=== PATIENT | female | born 1935 ===

== ENCOUNTER 2016-10-04 11:24 | Inpatient (IN) | payer MEDICAID, MEDICARE ==
[2016-10-04] MEDS ORDERED: Ondansetron INJ* 2 MG/ML VIAL IV ONE (17:17)
[2016-10-04] MEDS ORDERED: NS 0.9% 1000 ML* 1,000 ML IV ONE (17:17)
[2016-10-04] MEDS ORDERED: Pantoprazole IV* 40 MG IV ONE ×2 (17:17→21:45)
--- NOTE | 2016-10-04 17:55 | RAD ---
INDICATION: Shortness of breath. COMPARISON: There are no prior studies available for comparison. TECHNIQUE: Dual-energy PA and lateral views of the chest were obtained. FINDINGS: The heart is mildly enlarged. Mediastinal and hilar contours are otherwise unremarkable. The lungs are hyperinflated and clear. No pleural effusion is seen. IMPRESSION: FINDINGS SUGGESTIVE OF COPD, NO EVIDENCE FOR ACUTE FINDING.
[2016-10-04 18:38] LABS: Hematocrit 31 % (35-47); Hemoglobin 9.5 g/dl (12.0-16.0); Mean Corpuscular HGB Conc 31 g/dl (31-36); Mean Corpuscular Hemoglobin 24 pg (27-31); Mean Corpuscular Volume 78 fL (80-97); Mean Platelet Volume 8 um3 (7.4-10.4); Red Blood Count 3.95 10^6/ul (4.0-5.4); Red Cell Distribution Width 21 % (10.5-15); White Blood Count 7.6 10^3/ul (3.5-10.8)
[2016-10-04] MEDS ORDERED: Morphine INJ* 4 MG/ML 1 ML SYRINGE IV ONE (18:44)
[2016-10-04 18:47] LABS: Urine Bacteria 2+ (Absent); Urine Bilirubin Negative (Negative); Urine Glucose Negative (Negative); Urine Nitrite Positive (Negative)
[2016-10-04 18:53] LABS: Albumin 3.8 g/dL (3.2-5.2); BUN/Creatinine Ratio 27.1 (8-20); C Reactive Protein 4.13 mg/L (< 5.00); Calcium 9.1 mg/dL (8.6-10.3); EGFR Non-African American 80.1 (>60); Globulin 3.3 g/dL (2-4); Potassium 3.2 mmol/L (3.5-5.0); Total Bilirubin 0.4 mg/dL (0.2-1.0); Total Protein 7.1 g/dL (6.4-8.9)
[2016-10-04 18:55] LABS: Troponin I 0.01 ng/mL (<0.04)
[2016-10-04] MEDS ORDERED: Iohexol 300* (CONTRAST) 10 ML SDV IV ONE (19:10)
--- NOTE | 2016-10-04 20:11 | RAD ---
INDICATION: Abdominal pain. COMPARISON: There are no prior studies available for comparison. TECHNIQUE: A CT scan of the abdomen and pelvis was performed with intravenous and oral contrast following intravenous injection of 109 ml of Omnipaque 300 nonionic contrast. Contiguous axial sections were obtained from the lung bases through the symphysis pubis. Images were reconstructed in the coronal and sagittal planes. FINDINGS: The lung bases are clear. No pleural effusion is present. The liver and spleen are normal in size. There are several hypodense hepatic lesions. The largest is present in the left hepatic lobe measuring 2.1 x 1.6 cm in size most consistent with a cyst. Several of the lesions are too small to characterize by CT although likely represent cysts. In addition there is intra and extrahepatic ductal distention. The patient is status post cholecystectomy. No pancreatic ductal distention is seen. The adrenal glands appear to be within normal limits. The kidneys are normal in size. There is a hypodense lesion arising from the superior pole of the right kidney which measures greater than fluid density and measures 1.8 cm in size consistent with a complex cyst or solid mass. There are several small bilateral renal cysts. No hydronephrosis is seen. The aorta is normal in caliber with moderate to severe calcific plaque present. No significant enlarged retroperitoneal lymph nodes are seen. There is a large hiatal hernia containing the fundus and body of the stomach. The stomach, small and large bowel appear nondistended. The appendix is not visualized. There is moderate sigmoid diverticulosis. There is no evidence for diverticulitis or colitis. The uterus is retroverted and normal in size. No free intraperitoneal air or fluid is seen. No significant focal osseous abnormality is seen. IMPRESSION: 1. LARGE HIATAL HERNIA. 2. STATUS POST CHOLECYSTECTOMY. THERE IS BOTH INTRA AND EXTRA HEPATIC DUCTAL DISTENTION. RECOMMEND A FOLLOW-UP MRCP STUDY FOR FURTHER EVALUATION. 3. RIGHT RENAL NODULE CONSISTENT WITH EITHER A COMPLEX CYST OR MASS. RECOMMEND A FOLLOW-UP RENAL ULTRASOUND FOR FURTHER EVALUATION.
[2016-10-04] MEDS ORDERED: cefTRIAXone(*) 1 GM in NS 0.9% 50 ML* 50 ML IVPB ONE (21:28)
[2016-10-04] MEDS ORDERED: Morphine INJ* 2 MG/ML 1 ML SYRINGE ONE (23:55)
[2016-10-04] MEDS: Morphine INJ* 2 MG/ML 1 ML SYRINGE IV PRN (23:58)
[2016-10-05] MEDS: NS 0.9% 1000 ML* 1,000 ML IV SCH ×2 (00:25→23:25)
[2016-10-05] MEDS ORDERED: Pantoprazole IV* 40 MG IV ONE (02:00)
[2016-10-05 02:43] LABS: BUN/Creatinine Ratio 24.7 (8-20); Calcium 8.2 mg/dL (8.6-10.3); EGFR African American 98.2 (>60); EGFR Non-African American 76.3 (>60); Potassium 3.3 mmol/L (3.5-5.0)
[2016-10-05 02:50] LABS: Hematocrit 27 % (35-47); Hemoglobin 8.5 g/dl (12.0-16.0); Mean Corpuscular HGB Conc 32 g/dl (31-36); Mean Corpuscular Hemoglobin 25 pg (27-31); Mean Corpuscular Volume 78 fL (80-97); Mean Platelet Volume 8 um3 (7.4-10.4); Red Blood Count 3.43 10^6/ul (4.0-5.4); Red Cell Distribution Width 21 % (10.5-15); White Blood Count 6.1 10^3/ul (3.5-10.8)
[2016-10-05] MEDS: KCL 20 MEQ/100 ML IVPREMIX* 20 MEQ/100 ML BAG IV SCH ×3 (02:58→16:59)
[2016-10-05] MEDS: Pantoprazole IV* 80 MG in NS 0.9% 250 ML* 250 ML IVPB SCH ×2 (03:02→17:00)
--- NOTE | 2016-10-05 03:08 | HP ---
CC: Dr. Esparza * HISTORY AND PHYSICAL: DATE OF ADMISSION: 10/04/16 PRIMARY CARE PROVIDER: Dr. Arturo Esparza. ATTENDING PHYSICIAN: Dr. Enrike Harrell * (dictated by Brinda Drake NP) CHIEF COMPLAINT: Abdominal pain, melena, and shortness of breath. HISTORY OF PRESENT ILLNESS: Ms. 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 It is to note that the patient was hospitalized in April of this year, underwent an endoscopy showing a large hiatal hernia. She also has a history of Yevgeniy erosion, chronic anemia, and recurring black stool. It was suspected that the patient's NSAID use could be causing some of the ulcers possibly. The patient also reports that her stomach hurts when she is eating. She reports subjective fevers last evening. Denies any chills, chest pain. She also reports nausea and intermittent diarrhea and constipation with her IBS. She endorses dysuria and urgency. She is reporting belching. She also reports some dizziness occasionally when lying down. Due to the patient's symptoms, she called her primary care provider, who recommended she present to the emergency room for evaluation of her symptoms. While in the emergency room, the patient had labs that were significant for hypokalemia with potassium of 3.2, her hemoglobin is 9.5, and her hematocrit was 31. There are no previous hemoglobins and hematocrits in the computer for comparison. The patient had urinalysis positive for nitrites, 2+ leukocyte esterase, wbc's 3+, rbc's 2+, squamous epithelial cells present, and bacteria 2+ . The patient had an EKG showing sinus rhythm. She had a chest x-ray showing findings suggestive of COPD and no acute findings. She had an abdomen and pelvis CT showing a large hiatal hernia, status post cholecystectomy with intra - and extra- hepatic ductal distention. It was recommended that the patient have a followup MRCP and she was also noted to have a right renal nodule consistent with possible cyst or mass and further imaging was recommended. The patient also had a stool positive for occult blood. The hospitalists were asked to evaluate the patient for admission. PAST MEDICAL HISTORY: 1. Irritable bowel syndrome. 2. Rheumatoid arthritis. 3. Hypertension. 4. Large hiatal hernia. 5. Fibromyalgia. 6. Arthritis. 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 PAST SURGICAL HISTORY: 1. Status post cholecystectomy in 1986. 2. Status post cardiac catheterization in 2003. HOME MEDICATIONS: Include: 1. Ferrous sulfate 325 mg oral daily. 2. Amlodipine 5 mg oral daily. 3. Omeprazole 20 mg oral twice daily. 4. Plaquenil 200 mg oral daily. The patient is no longer taking the Plaquenil as she does not like the side effects she has read about that. 5. Tramadol 100 mg oral daily at bedtime. 6. Tramadol 50 mg oral every 4 hours as needed for pain. 7. Adderall 10 mg oral twice daily. ALLERGIES: CODEINE. FAMILY HISTORY: The patient's father had a history of COPD, passed at age 85. The patient had a brother with history of coronary artery disease and passed in his 80s. The patient's mother and sister have sister history of diabetes mellitus. The patient has a daughter with history of breast cancer. The patient 's mother had ovarian cancer with metastasis. The patient had a sister with history of pancreatic cancer and the patient also had a history with a sister of uterine and breast cancer. SOCIAL HISTORY: The patient reports smoking many years ago. She does not want to discuss her smoking history but she is currently a former smoker. She denies alcohol or recreational drug use. She is retired. She is and lives with her . Her , Aj Henderson, or her daughter, Di, will be her surrogate decision makers in the event she is unable to make decisions for herself. REVIEW OF SYSTEMS: I performed a 14-point review of systems. All the pertinent positives and negatives are mentioned in the history of present illness. The remaining review of systems is negative. PHYSICAL EXAMINATION GENERAL APPEARANCE: The patient is alert, pleasant, and appears to be in no acute distress. VITAL SIGNS: Temperature 97.7, heart rate 96, respiratory rate 19, O2 sat 97% on room air, blood pressure 133/56. HEENT: Normocephalic, atraumatic. Pupils are equal and reactive to light. Extraocular movements are intact. RESPIRATORY: There is no accessory muscle use. The lungs are clear to auscultation bilateral. CARDIOVASCULAR: Regular rate and rhythm. S1 and S2 present. There are no murmurs, rubs, or gallops heard. ABDOMEN: Soft, tender in the right upper quadrant and epigastric area. Large. There are bowel sounds present x4. Rectal exam was deferred as it was done by the emergency room provider. EXTREMITIES: No lower extremity edema. DP and PT pulses are 2+ and symmetric. MUSCULOSKELETAL: There is no clubbing or cyanosis noted. The patient exhibits good strength in all extremities. NEUROLOGIC: The patient is alert and oriented x4. Cranial nerves II through XII are grossly intact. The patient is noted to have a slight right-sided facial droop as residual from her Carrasquillo's palsy. PSYCHOLOGICAL: The patient is calm and cooperative. SKIN: There are no rashes or abnormalities seen. DIAGNOSTIC STUDIES/LAB DATA: Sodium 137, potassium 3.2, chloride 104, CO2 26, BUN 19, creatinine 0.70, glucose 109. Troponin 0.01. White blood cell count 7.6, hemoglobin 9.5, hematocrit 31, and platelet count 505. Urinalysis is significant for 1+ protein, trace ketones, positive nitrites, leukocyte esterase 2+, wbc's 3+, rbc's 2+, squamous epithelial cells present, and bacteria 2+. EKG shows sinus rhythm rate of 97. There were no acute signs of ischemia. There were no previous EKGs for comparison. 1. Chest x-ray from today. Findings suggestive of COPD, no acute findings. 2. Abdomen and pelvis CT from today. Radiologist's impression: Large hiatal hernia, status post cholecystectomy, intra- and extra-hepatic ductal dilation - followup MRCP recommended. Right renal nodule consistent with mass or cyst. Recommend a followup renal ultrasound for further evaluation. IMPRESSION: Ms. Henderson is an 81-year-old female with past medical history significant for irritable bowel syndrome, rheumatoid arthritis, hypertension, hiatal hernia, fibromyalgia, arthritis, Carrasquillo's palsy, brain stem cyst, and history of Yevgeniy erosions, who presents to the emergency room with complaints of shortness of breath, abdominal pain, and melena. She will be admitted inpatient for possible upper gastrointestinal bleed, abdominal pain, and urinary tract infection. ASSESSMENT/PLAN: 1. Abdominal pain. The patient has epigastric and right upper quadrant pain. She is status post cholecystectomy. Her abdomen and pelvis CT shows intra- and extra- hepatic ductal distention. The patient will get an MRCP in the morning for further evaluation. The case has been reviewed with Dr. Pop, who is aware of the patient and will consult on her. 2. Melena. The patient has a positive guaiac. There are no previous H and H' s to compare to. The patient will have her hemoglobin and hematocrit trended every 6 hours. In addition, the patient will be placed on Protonix drip and again GI has been asked to see the patient. We will also check orthostatic vital signs on the patient and she will have two IVs at all times. 3. Urinary tract infection. I suspect the patient has urinary tract infection based on her urinalysis. She has been started on IV ceftriaxone. She is currently afebrile and has no leukocytosis. 4. Rheumatoid arthritis. The patient is currently not taking her Plaquenil. 5. Fibromyalgia. The patient will be continued on her home tramadol. 6. Chronic anemia. The patient will be continued on her home ferrous sulfate. 7. Hypertension. The patient will be continued on her home amlodipine. 8. Fluids, electrolytes, and nutrition. The patient will be on a clear liquid diet. 9. Code status. Full code. 10. DVT prophylaxis. The patient is at highest risk. We will hold chemical DVT prophylaxis in the setting of possible gastrointestinal bleed. She will have SCDs. 11. Disposition. Inpatient. TIME SPENT: Time for this admission was approximately 60 minutes; greater than half of that was spent with the patient and family discussing medications, past medical history, and the events leading up to her arrival today, performing a physical examination. The case has been reviewed with the attending, Dr. Harrell, who agrees with the plan of care. Reviewed by HILDA PARKS 10/06/16 1207 [id number]/[facility] #: [id number] MTDGlenn
[2016-10-05] MEDS: Morphine INJ* 2 MG/ML 1 ML SYRINGE IV PRN ×3 (04:15→12:33)
[2016-10-05] MEDS: traMADol TAB* 50 MG PO PRN ×3 (05:24→12:33)
--- NOTE | 2016-10-05 07:48 | RAD ---
INDICATION: Right renal nodule. COMPARISON: Correlation is made with prior CT of the abdomen and pelvis from October 04, 2016. TECHNIQUE: Multiple real-time images of the right kidney were obtained. FINDINGS: The right kidney is normal in size shape and echogenicity. The kidney measured 10.4 x 3.7 x 4.5 cm. No hydronephrosis is present. There is a hypoechoic nodule arising from the upper pole of the right kidney measuring 1.8 x 1.8 x 1.4 cm consistent with either a complex cyst or solid nodule. No definite intrinsic vascularity is seen. IMPRESSION: 1.8 CM NODULE ARISING FROM THE UPPER POLE OF THE RIGHT KIDNEY CONSISTENT WITH A COMPLEX CYST OR SOLID MASS. THE ULTRASOUND STUDY IS INDETERMINATE. RECOMMEND AN MRI OF THE KIDNEYS RENAL MASS PROTOCOL WITHOUT AND WITH CONTRAST FOR FURTHER EVALUATION.
[2016-10-05] MEDS: Hydroxychloroquine TAB* 200 MG PO SCH ×2 (09:04→09:07)
[2016-10-05] MEDS: amLODIPine TAB* 5 MG PO SCH (09:04)
[2016-10-05] MEDS ORDERED: LORazepam TAB(*) 1 MG PO ONE (10:30)
--- NOTE | 2016-10-05 13:18 | RAD ---
INDICATION: Abdominal pain, dilated bile ducts. COMPARISON: Comparison is made with a prior CT of the abdomen and pelvis from October 04, 2016. TECHNIQUE: Axial and coronal heavily T2-weighted images of the abdomen were obtained. Images were reconstructed in the maximum intensity projection format. FINDINGS: The liver and spleen are normal in size. There are multiple hepatic cysts present. The largest cyst measures 2.0 x 1.5 cm in size. There is both intra and extrahepatic ductal distention present. The ducts in the left hepatic lobe are more distended. The common bile duct measures up to 0.8 cm in diameter. No intraluminal filling defect or calculus is seen. There is also mild prominence of the pancreatic duct. No focal pancreatic abnormality is seen. The patient is status post cholecystectomy. The adrenal glands appear to be within normal limits. The kidneys are normal in size. There are multiple small bilateral subcentimeter renal cysts present. In addition there is a exophytic lesion arising from the upper pole of the right kidney measuring up to 1.5 cm in size as described on the prior CT and renal ultrasound studies. There is a large hiatal hernia containing the body and fundus of the stomach centered to the right of the midline. IMPRESSION: 1. THERE IS INTRA AND EXTRAHEPATIC DUCTAL DISTENTION AND MILD PANCREATIC DUCTAL DISTENTION. NO CALCULUS IS SEEN. THIS MAY REPRESENT A CHRONIC FINDING. RECOMMEND CORRELATION WITH LIVER FUNCTION TESTS. THE POSSIBILITY OF AN OBSTRUCTING LESION AT THE AMPULLA CANNOT BE EXCLUDED. A DEDICATED CONTRAST ENHANCED CT OF THE PANCREAS MAY BE HELPFUL IN FURTHER EVALUATION CLINICALLY NEEDED. 2. SMALL EXOPHYTIC INDETERMINATE RIGHT RENAL LESION PREVIOUSLY DESCRIBED DESCRIBED.
[2016-10-05] MEDS ORDERED: Midazolam* 1 MG/ML 10 ML VIAL (10 MG) ONE (14:38)
[2016-10-05] MEDS ORDERED: Meperidine SYRINGE* 50 MG/ML ONE (14:38)
[2016-10-05] MEDS ORDERED: traMADol TAB* 50 MG PO SCH (21:00)
[2016-10-05] MEDS: Omeprazole CAP* 20 MG PO SCH (21:34)
[2016-10-05] MEDS: Potassium Chlor TAB* 10 MEQ TAB.ER PO SCH (21:34)
[2016-10-05] MEDS ORDERED: cefTRIAXone VIAL(*) 1,000 MG in NS 0.9% 50 ML* 50 ML IVPB SCH (22:00)
--- NOTE | 2016-10-05 23:22 | CONS ---
GASTROENTEROLOGY CONSULTATION: DATE OF CONSULTATION: 10/05/16 CONSULTING PHYSICIANS: Brandon Madera MD; Arturo Hoffman MD. REASON FOR CONSULTATION: Complains of abdominal pain, dark stool, and hemoglobin of 8.5 with MCV of 78. HISTORY: This 81-year-old woman who has had signs of gastrointestinal bleeding in the last couple of years, EGD showing a large hiatal hernia and Yevgeniy's erosions, once again presents with weakness, shortness of breath, and dark stool. She has a history of fibromyalgia and other chronic painful conditions. She takes tramadol and her breaks into the conversation pointing out that she uses it a lot and, when she runs out, will take Advil. Other notes discussed acetaminophen, but he is specific that it is Advil. She refers to iron supplements as "I just started taking it again." PAST MEDICAL HISTORY: 1. Irritable bowel syndrome. 2. Fibromyalgia. 3. Large hiatal hernia. 4. Hypertension. 5. Chronic anemia. 6. Status post cholecystectomy in 1986. 7. Status post cardiac catheterization in 2003. MEDICATIONS: 1. Amlodipine 5 mg. 2. Plaquenil 200 mg. 3. Adderall 10 mg (she states this may give her loose stools). 4. Omeprazole 20 mg once or twice a day, taken sporadically. FAMILY HISTORY: Her father had COPD. Diabetes is present in her mother and sister. Her mother had ovarian cancer and there is a sister with pancreatic cancer. SOCIAL HISTORY: She lives with her . She has a daughter living in [place] who works for [employer] for retarded children with special needs children. REVIEW OF SYSTEMS: She had a colonoscopy by Dr. Hendrix in [place] in 2008 showing internal hemorrhoids. That report is on request. There is no history of UT, fibrillation, syncope, hemoptysis, TB, hepatitis, jaundice, or bright red rectal bleeding. There is no history of rash. EXAM: She has jet black dyed hair. HEENT exam is otherwise unremarkable. She has no adenopathy. Her lungs are clear with poor effort. She had received an Ativan dose prior to MRCP today. Her abdomen is obese, symmetric, somewhat distended, it is soft without focal tenderness. Rectal shows somewhat loose dark stool Hemoccult (positive). Extremities show 1+ edema symmetrically. She has difficulty moving about the gurney but moves all 4 extremities. LABORATORY DATA: Hemoglobin 8.5, hematocrit 27, MCV 78, platelets 412,000. LFTs normal with AST 17, ALT 15, alkaline phosphatase 70, albumin 3.8, total bilirubin 0.4. Creatinine 0.73, BUN 18. IMPRESSION: This 81-year-old woman known to have a very large hiatal hernia with Yevgeniy's erosions that have been an apparent source of chronic anemia, once again presents with worsening anemia and a history that suggests sporadically and recurrently she will take Advil when tramadol runs out. She takes her PPI sporadically. Regular use might help attenuate the Yevgeniy's erosions and certainly blunt the effect of Advil on them. Regular use of iron at a certain dose (to be determined individually by close observation), would also lessen the anemia that results from the hiatal hernia and the complicating erosions. It is a balancing act and at the moment she appears not to have a clear view of what needs to be observed or to accept the plan this that has been described before. She makes frequent reference to precipitously changing her medicines based on her own analysis. At any rate, what would seem reasonable is to use tramadol or fentanyl patch or other chronic pain modality steadily and avoid the use of Advil. She should take an iron supplement forever, though the dose she can tolerate will need to be worked out. If she returns to heme negative status, another colonoscopy might be averted. She certainly is not an ideal candidate for effectively tolerating a prep and this would place her at a higher risk for the colonoscopy and therapeutic maneuvers. Hopefully that can be avoided. [id number]/[facility] #: [id number] [facility]
--- NOTE | 2016-10-06 03:46 | PRO ---
DATE: 10/05/16 - ROOM #[id number] REFERRING PHYSICIANS: Dr. Brandon Madera; Dr. Arturo Esparza * PROCEDURE: Upper gastrointestinal endoscopy through to distal duodenum. INDICATION: This 81-year-old woman presented once again with weakness, dark stool, and complaints of diffuse pain. She has been taking some Advil when she runs out of tramadol. ENDOSCOPIST: Dr. Pop. MEDICATION: Midazolam 3 (dose of Ativan this morning pre-MRCP). FINDINGS: She is a chronically ill-appearing woman with jet black dyed hair. She is moderately overweight and has poor general mobility. EGD: Larynx - not seen. Esophagus - easily entered. The mucosa is normal in the upper, mid, and lower esophagus to the EG junction at 32 to 33. Stomach - large hiatal hernia with linear Yevgeniy's erosions, though no overt blood was seen. There are no polyps or generalized gastritis. The gastric body and antrum appear unremarkable. Duodenum - the pylorus, bulb, and second through fourth portions appear normal. IMPRESSION: 1. Large hiatal hernia. 2. Clinical gastroesophageal reflux disease - actually the patient says that she has minimal acid indigestion and the role of PPI more for potentially treating or resolving Yevgeniy's erosions in the gastric fundus. 3. Chronic pain - cause not seen this exam. 4. Anemia - likely multifactorial and a way to get by a number of practical issues would be to give an iron infusion now and possibly on a semi-regular basis. The strategy of minimizing iron loss and enhancing her absorption ( chiefly by consistent compliance) was reviewed with her and daughter. This would involve tramadol or an opiate-releasing patch so as not to need any Advil. If an additional agent is needed, Tylenol within limits would be reasonable. She is to stay on iron forever in some form and options were discussed. [id number]/[facility] #: [id number] [facility]
[2016-10-06] MEDS: amLODIPine TAB* 5 MG PO SCH (09:13)
[2016-10-06] MEDS: Omeprazole CAP* 20 MG PO SCH (09:13)
[2016-10-06] MEDS: Potassium Chlor TAB* 10 MEQ TAB.ER PO SCH (09:13)
[2016-10-06] MEDS: Hydroxychloroquine TAB* 200 MG PO SCH (09:14)
[2016-10-06 09:16] VITALS: BP 138/45
[2016-10-06] MEDS: traMADol TAB* 50 MG PO PRN (09:58)
[2016-10-06] MEDS ORDERED: Dextroamphetamine (NF) TAB 5 MG TAB PO SCH (11:00)
[2016-10-06] MEDS ORDERED: [UNRECOGNIZED DRUG - OTHER] PO SCH (11:44)
--- NOTE | 2016-10-06 11:50 | PN ---
"Progress Note - Progress Note Date of Service: 10/06/16 Note: Time spent on discharge 70 minutes. This report was requested by: Shukri Madera | Reference #: [id number] Others' Prescriptions Patient Name: Lorie Henderson Date: 1935 Address: [address] [place] [address] [place] [id number] Sex: Female Rx Written Rx Dispensed Drug Quantity Days Supply Prescriber Name 09/14/2016 09/16/2016 dextroamp-amphetamin 10 mg tab 60 30 Arturo Cheng MD 07/14/2016 09/10/2016 tramadol hcl 50 mg tablet 180 30 Arturo Cheng MD 08/16/2016 08/16/2016 dextroamp-amphetamin 10 mg tab 60 30 Arturo Cheng MD 07/14/2016 08/15/2016 tramadol hcl 50 mg tablet 180 30 DigArturo downey MD 07/16/2016 07/18/2016 dextroamp-amphetamin 10 mg tab 60 30 DigArturo downey MD 07/14/2016 07/14/2016 tramadol hcl 50 mg tablet 180 30 Arturo Cheng MD 07/09/2016 07/09/2016 hydrocodone-acetaminophen 5-325 mg tablet 12 3 Elvia Contreras ([place]) 06/16/2016 06/17/2016 dextroamp-amphetamin 10 mg tab 60 30 DigArturo downey MD 04/17/2016 06/15/2016 tramadol hcl 50 mg tablet 180 30 Arturo Cheng MD 04/17/2016 05/19/2016 tramadol hcl 50 mg tablet 180 30 Arturo Cheng MD 05/19/2016 05/19/2016 dextroamp-amphetamin 10 mg tab 60 30 Arturo Cheng MD 04/17/2016 04/19/2016 dextroamp-amphetamin 10 mg tab 60 30 Arturo Cheng MD 04/17/2016 04/17/2016 tramadol hcl 50 mg tablet 180 30 Arturo Cheng MD 01/23/2016 03/20/2016 tramadol hcl 50 mg tablet 180 30 ElverioArturo mack MD 03/19/2016 03/20/2016 dextroamp-amphetamin 10 mg tab 60 30 DigioArturo mack MD 01/23/2016 02/20/2016 tramadol hcl 50 mg tablet 180 30 DigioArturo mack MD 02/20/2016 02/20/2016 dextroamp-amphetamin 10 mg tab 60 30 DigioArturo mack MD 01/23/2016 01/23/2016 tramadol hcl 50 mg tablet 180 30 DigioArturo mack MD 01/20/2016 01/21/2016 dextroamp-amphetamin 10 mg tab 60 30 DigioArturo mack MD 12/25/2015 12/26/2015 dextroamp-amphetamin 10 mg tab 60 30 Baljit Camacho DO 10/27/2015 12/25/2015 tramadol hcl 50 mg tablet 180 30 DigioArturo mack MD 10/27/2015 11/26/2015 tramadol hcl 50 mg tablet 180 30 Arturo Cheng MD 11/23/2015 11/24/2015 dextroamp-amphetamin 10 mg tab 60 30 ElverioArturo mack MD 10/27/2015 10/28/2015 tramadol hcl 50 mg tablet 180 30 Arturo Cheng MD 10/24/2015 10/25/2015 dextroamp-amphetamin 10 mg tab 60 30 Arturo Cheng MD"
--- NOTE | 2016-10-07 04:24 | DS ---
CC: Dr. Esparza; Dr. Pop * DISCHARGE SUMMARY: DATE OF ADMISSION: 10/04/16 DATE OF DISCHARGE: 10/06/16 HISTORY OF PRESENT ILLNESS: This 81-year-old woman presented with abdominal pain, melena and shortness of breath. History is detailed in admission note. I note she had been on iron in the past, but has not taken it for perhaps a year. Her stools were black for the past week, obviously not from iron, which she has not been taking. She had upper abdominal pain and some shortness of breath. I know she has a history of chronic pain, as well as rheumatoid arthritis. We do not have any old labs on her in the emergency room. Her hemoglobin was 9.5 and hematocrit was 31, potassium is 3.2. She had a CT scan of the abdomen and pelvis showing extra and intrahepatic biliary dilatation; however, the MRI cholangiopancreatogram did not show any obstruction. Dr. Pop evaluated the patient and felt that this was a chronic dilatation of no clinical significance. There was a small exophytic indeterminate right renal lesion. I believe this ultrasound of the kidneys showed a 1.8 cm nodule in the upper pole of the right kidney. This should be closely followed, perhaps the radiologist recommend an MRI of the kidneys with a renal mass protocol, this was not done here as she had a pancreatogram MRI. Patient had an upper endoscopy by Dr. Pop, this showed a large hiatal hernia. There are probably resolving Yevgeniy's erosions of the gastric fundus. The patient received 1 intravenous dose of iron sucrose 200 mg. She was advised to take ferrous sulfate 325 mg with the meal every day without fail. If her hematocrit is not coming up or iron studies show that she is still significantly iron deficient, further doses of iron sucrose could be given as an outpatient. FINAL DIAGNOSES: 1. Hiatal hernia with Yevgeniy's erosions. 2. Iron deficiency anemia. 3. Right renal mass. 4. Rheumatoid arthritis. I started the patient on fentanyl 12 mcg per hour every 72 hours, 5 patches as a trial for pain control. I advised her to take less tramadol than she had been taking, as I think she may be exceeding the recommended guidelines and if she is having to take frequent doses of p.r.n. pain medications, then the long- acting medications should be considered. If there is some problem with the fentanyl, it can either be titrated up or oxycodone or morphine slow release tablets could be used as an equivalent substitute. DISCHARGE MEDICATIONS: 1. Hydroxychloroquine 200 mg daily. 2. Fentanyl patch 12 mcg per hour every 72 hours. 3. Amlodipine 2.5 mg daily, this is a new lower dose. 4. Mixed amphetamines 10 mg as prescribed. 5. Ferrous sulfate 325 mg daily. 6. Omeprazole 20 mg b.i.d. for 2 months, then daily. 7. Tramadol 50 mg 4 times a day, not to exceed 300 mg daily. [id number]/[facility] #: [id number] MTDD
--- NOTE | 2016-10-08 19:47 | ED ---
Jenni Richards Edward, scribed for Emory Ceballos MD on 10/04/16 at 1710 . Abdominal Pain/Female - HPI Summary HPI Summary: 81 y/o female presents to ED c/o intermittent ABD pain for the past couple of days. The pain is located in the lower ABD and rated 7/10 in severity. It is aggravated by food. She also c/o intermittent melena for one week. Associated sx : diffuse joint pains secondary to rheumatoid arthritis. - History of Current Complaint Chief Complaint: EDAbdPain Stated Complaint: STOMACH/BACK PAIN Time Seen by Provider: 10/04/16 17:04 Hx Obtained From: Patient Onset/Duration: Lasting Days, Still Present Timing: Frequency Of Episodes - Every time she eats Severity Currently: Severe Pain Intensity: 7 Pain Scale Used: 0-10 Numeric Location: Suprapubic Aggravating Factor(s): Food Associated Signs and Symptoms: Positive: Blood in Stool - Melena, Other: - Diffuse joint pains Allergies/Adverse Reactions: Allergies Allergy/AdvReac Type Severity Reaction Status Date / Time Codeine Allergy Unknown Verified 08/11/15 09:22 Reaction Details Home Medications: Home Medications Amphetamine MIXED SALT TAB* [Adderall TAB*] 10 mg PO BID MDD 20 mg 10/04/16 [ History Confirmed 10/04/16] Ferrous Sulfate TAB* 325 mg PO DAILY 10/04/16 [History Confirmed 10/04/16] amLODIPine TAB* [Norvasc 5 mg TAB*] 5 mg PO DAILY 10/04/16 [History Confirmed ] traMADol TAB* [Ultram*] 50 mg PO Q4HR PRN MDD 300 mg 10/04/16 [History Confirmed 10/04/16] traMADol TAB* [Ultram*] 100 mg PO BEDTIME MDD 300 mg 10/04/16 [History Confirmed 10/04/16] PMH/Surg Hx/FS Hx/Imm Hx Previously Healthy: No Cardiovascular History: Reports: Hx Hypertension Respiratory History: Reports: Other Respiratory Problems/Disorders - Diaphragmatic hernia GI History: Reports: Hx Irritable Bowel Musculoskeletal History: Reports: Hx Rheumatoid Arthritis - Surgical History Surgery Procedure, Year, and Place: Colonoscopy (04/22/2008), Cholecystectomy ( 1986) [place], Cardiac Catheterization (2003) [facility] Infectious Disease History: Denies: Traveled Outside the [place] in Last 30 Days - Family History Known Family History: Positive: Respiratory Disease - COPD, Other - Cancer - Social History Occupation: Unemployed - Homemaker Lives: With Family Alcohol Use: None Hx Tobacco Use: Yes Smoking Status (MU): Former Smoker Review of Systems Constitutional: Negative Eyes: Negative ENT: Negative Cardiovascular: Negative Respiratory: Negative Gastrointestinal: Other - Melena Positive: Abdominal Pain Genitourinary: Negative Positive: Arthralgia - Diffuse joint pains secondary to arthritis Skin: Negative Neurological: Negative Psychological: Normal All Other Systems Reviewed And Are Negative: Yes Physical Exam Triage Information Reviewed: Yes Vital Signs On Initial Exam: Initial Vitals Temp Pulse Resp BP Pulse Ox 98.4 F 108 20 152/100 98 10/04/16 11:27 10/04/16 11:27 10/04/16 11:27 10/04/16 11:27 10/04/16 11:27 Vital Signs Reviewed: Yes Appearance: Positive: Obese Skin: Positive: Warm, Skin Color Reflects Adequate Perfusion Head/Face: Positive: Normal Head/Face Inspection ENT: Positive: Normal ENT inspection, Hearing grossly normal Neck: Positive: Supple, Nontender Respiratory/Lung Sounds: Positive: Clear to Auscultation, Breath Sounds Present Cardiovascular: Positive: RRR. Negative: Murmur Abdomen Description: Positive: Other: - rectal exam without mass, non tender and heme positive on lab test card.. Negative: CVA Tenderness (R), Distended Musculoskeletal: Positive: Strength/ROM Intact Neurological: Positive: Sensory/Motor Intact, Alert, Oriented to Person Place, Time, CN Intact II-III Psychiatric: Positive: Normal Diagnostics - Vital Signs Vital Signs Temp Pulse Resp BP Pulse Ox 10/04/16 15:06 99.1 F 97 20 138/75 98 10/04/16 13:26 98.1 F 110 20 131/75 100 10/04/16 11:27 98.4 F 108 20 152/100 98 - Laboratory Result Diagrams: 10/04/16 18:30 10/04/16 18:30 Lab Statement: Any lab studies that have been ordered have been reviewed, and results considered in the medical decision making process. - Radiology CXR Xray Interpretation: No Acute Changes - FINDINGS SUGGESTIVE OF COPD, NO EVIDENCE FOR ACUTE FINDING. Radiology Interpretation Completed By: Radiologist - EKG 1 EKG Interpretation: 18:51 - SINUS RHYTHM @ 97 BPM. NO STEMI Abdominal Pain Fem Course/Dx - Course Course Of Treatment: 81 yr old female with heme positive stools, abd cramping. Discussed with Dr Justin Kendrick, hospitalists for admission. - Diagnoses Provider Diagnoses: GI bleeding, Abdominal pain Discharge - Discharge Plan Condition: Good Disposition: ADMITTED TO [facility] Referrals: Arturo Cheng MD [Primary Care Provider] - The documentation as recorded by the Jenni chauhan Edward accurately reflects the service I personally performed and the decisions made by Tucker suarez Walter, MD.
== END 2016-10-06 12:10 | disposition home or self-care (01) | DRG 391 ==
LOC: ED 11:24 → SSU 21:39
PROVIDERS: ADMIT Hospitalist; ATTEND Internal Medicine
PROC: 0DJ08ZZ Inspection of Upper Intestinal Tract, Via Natural or Artificial Opening Endoscopic (ICD-10-PCS; principal; 2016-10-04)
DX: K44.9 Diaphragmatic hernia without obstruction or gangrene (principal); K25.4 Chronic or unspecified gastric ulcer with hemorrhage; D53.9 Nutritional anemia, unspecified; M06.9 Rheumatoid arthritis, unspecified; K58.9 Irritable bowel syndrome, unspecified; I10 Essential (primary) hypertension; M79.7 Fibromyalgia; M19.90 Unspecified osteoarthritis, unspecified site; K21.9 Gastro-esophageal reflux disease without esophagitis; D50.9 Iron deficiency anemia, unspecified; E87.6 Hypokalemia; N28.89 Other specified disorders of kidney and ureter; G89.29 Other chronic pain; G51.0 Bell's palsy; Z90.49 Acquired absence of other specified parts of digestive tract; Z83.3 Family history of diabetes mellitus; Z82.5 Family history of asthma and other chronic lower respiratory diseases; Z80.3 Family history of malignant neoplasm of breast; Z80.0 Family history of malignant neoplasm of digestive organs; Z80.41 Family history of malignant neoplasm of ovary; Z82.49 Family history of ischemic heart disease and other diseases of the circulatory system
CPT/HCPCS: 36415; 71020; 74177; 74181; 76376; 76775; 80048; 80053; 81003; 81015; 82272; 83605; 83690; 84484; 85025; 86140; 86850; 86900; 86901; 87077; 87086; 87186; 93005; 99156; 99157; A9270-GY; J0696; J1756; J2250; J2270; J2310; J2405; J3480; Q9967

== ENCOUNTER 2018-09-08 15:00 | Inpatient (IN) | payer MEDICAID, MEDICARE ==
[2018-09-08] MEDS ORDERED: NS 0.9% 1000 ML** 1,000 ML IV ONE (17:00)
[2018-09-08 18:03] LABS: ABS Basophils 0.1 10^3/ul (0-0.2); ABS Eosinophils 0.2 10^3/ul (0-0.6); ABS Lymphocytes 1.2 10^3/ul (1.0-4.8); ABS Monocytes 0.6 10^3/ul (0-0.8); ABS Neutrophils 3.4 10^3/ul (1.5-7.7); Eosinophil % 3.6 %; Hematocrit 24 % (35-47); Hemoglobin 7.7 g/dL (12.0-16.0); Lymphocyte % 21.2 %; Mean Corpuscular HGB Conc 32 g/dL (31-36); Mean Corpuscular Hemoglobin 26 pg (27-31); Mean Corpuscular Volume 81 fL (80-97); Mean Platelet Volume 7.7 fL (7.4-10.4); Platelet Count 347 10^3/uL (150-450); Red Blood Count 2.98 10^6 /uL (3.70-4.87); Red Cell Distribution Width 17 % (10-15); White Blood Count 5.5 10^3/uL (3.5-10.8)
[2018-09-08 18:13] LABS: INR 1.01 (0.82-1.09)
[2018-09-08 18:25] LABS: BUN/Creatinine Ratio 21.8 (8-20); Calcium 8.1 mg/dL (8.6-10.3); EGFR African American 127.7 (>60); EGFR Non-African American 105.6 (>60); Magnesium 1.5 mg/dL (1.9-2.7); Potassium 2.8 mmol/L (3.5-5.0)
[2018-09-08] MEDS ORDERED: Magnesium Sulfate 2 GM IV* 2 GM/50 ML BAG IVPB ONE (18:56)
[2018-09-08] MEDS ORDERED: Potassium Chlor TAB* 20 MEQ TAB.ER PO ONE (18:56)
[2018-09-08] MEDS ORDERED: fentaNYL PATCH 25 MCG/HR TRANSDERM SCH (20:00)
--- NOTE | 2018-09-08 20:09 | HP ---
History of Present Illness - History of Present Illness Reason for Visit: Melena and weakness History of Present Illness: Ms. Henderson is an 81 y/o female who presented with complaint of black tarry stools, weakness and shortness of breath for 1 month with increased severity for 2 weeks. She also has feeling of passing out but didnot had one. On baseline she was able to do perform all activities but after these symptoms her activity has markedly decreased. She also gives history of burning micturition but no blood in urine or any abdominal pain. She feels nauseous but no vomiting. She has intermittent diarrhea and constipation given her history of IBS. There is no history of fever, chest pain, extremity swelling, weight changes. She had similar episodes in the past which required hospitalization and blood transfusion and was diagnosed as Hiatal Hernia with Yevgeniy erosion with chronic anemia. Due to these symptom she landed in ED in [place] [facility] today ; because they had no GI coverage she was accepted here and transferred. - Past Medical History Past Medical History: Patient had multiple hospitalization in the past and required multiple blood transfusion for the similar problem and had multiple EGD. 1.Hiatal Hernia with Yevgeniy Erosion 2.Iron deficiency Anemia. 3. Irritable bowel syndrome 4. Hypertension 5. Fibromyalgia 6. 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 Cholecystectomy in s 2. Cardiac catheterization but no any significant finding. - Past Family History Past Family History: History of uterine cancer in mother and sister. History of pancreatic cancer in sister. History of colon cancer in younger sister in 40's. - Past Social History Past Social History: Former smoker; 30-40 years back, Denies alcohol or recreational drug use. and lives with her . Her health care proxy are her , Aj Henderson and daughters, yuliya. Review of Systems - Review of Systems Constitutional: Positive: Weakness Respiratory: Positive: Shortness of Breath Gastrointestinal: Positive: Diarrhea, Constipation, Melena Genitourinary: Positive: Dysuria - Medications/Allergies Allergies/Adverse Reactions: Allergies Allergy/AdvReac Type Severity Reaction Status Date / Time codeine Allergy Unknown Verified 09/08/18 20:02 Reaction Details Medications: Current Medications Amphetamine/Dextroamphetamine (Adderall Tab*) 10 mg PO BID [facility] Cholecalciferol (Vitamin D3 Cap/Tab (Nf)) 1 cap PO DAILY YANELY Fentanyl (Duragesic Patch 25 Mcg/Hr*) 25 mcg TRANSDERM Q72H YANELY Omeprazole (Prilosec Cap* (Nf)) 20 mg PO BID YANELY Exam Vital Signs: Temp Pulse Resp BP Pulse Ox 98.3 F 86 20 161/68 98 09/08/18 16:45 09/08/18 16:45 09/08/18 16:45 09/08/18 16:45 09/08/18 16:45 Exam: Patient is lying on a bed and awake. HEENT: Normocephalic, Atraumatic, Eyes PERRLA, Throat normal. Heart: Normal heart sound heard with no any rubs, gallops or murmurs. Lungs: Non-tender, Normal vesicular sound heard all over the lung field. Abdomen: Soft, non-distended, Mild tenderness on RLQ with no any rebound. No guarding or rigidity. Normal bowel sound heard all over the quadrants. Extremities: Tender points present. No any swelling. Deformity of fingers seeen. Neuro: Alert, conscious and oriented X 3. Moving al four extremities. Assessment/Plan - Assessment/Plan Assessment: 82 y/o F with past medical history of Hiatal hernia with yevgeniy erosion, IBS, SHILOH with multiple transfusion, Fibromyalgia presented with melena, weakness and SOB. Also has burning micturition. Transferred from [facility]. Her hb IS 7.7, POTASSIUM 2.8, Magnesium 1.5. Occult blood in stool was positive(from [place]). Potassium and magnesium repleted. Urine nitrites +ve with bacteria( [facility]). Urine test send again. GI consulted. He will see patient tomorrow. Plan: Yevgeniy lesion: GI consult done. to be seen tomorrow. Monitor HgB. iF <7 MAY REQUIRE TRANSFUSION. May need iv iron and on discharge oral iron. UTI: Nitrofurantoin for 5 days. F/U urine culture Iron deficiency anemia: IV iron needed. Oral iron on discharge. Fibromyalgia: is on fentanyl patch. but may need 1st line treatment like exercise and amityptiline. Attestation Documenting Resident: Florence Cole Supervising Physician: Jennifer Jones Attestation: This service has been performed in part by a resident under the direction of a teaching physician.I, Jennifer Jones, performed the service, or was physically present during the critical, or montgomery portions of the service, furnished by the resident. I participated in the management of the patient.
[2018-09-08] MEDS ORDERED: Acetaminophen TAB* 325 MG ONE (20:43)
[2018-09-08] MEDS: Acetaminophen TAB* 325 MG PO PRN (20:44)
[2018-09-08] MEDS: KCL 20 MEQ/100 ML IVPREMIX* 20 MEQ/100 ML BAG IV SCH (22:19)
[2018-09-08] MEDS: Pantoprazole TAB * 40 MG TAB PO SCH (22:58)
[2018-09-08] MEDS: Nitrofurantoin Macrocrystals* 50 MG CAP PO SCH (22:58)
[2018-09-08] MEDS: Amphetamine MIXED SALT TAB* 10 MG TAB PO SCH (23:12)
[2018-09-09 00:29] LABS: Urine Appearance Cloudy; Urine Bacteria 1+ (Absent); Urine Bilirubin Negative (Negative); Urine Blood 2+ (Negative); Urine Color Straw; Urine Glucose Negative (Negative); Urine Ketones Negative (Negative); Urine Nitrite Negative (Negative); Urine Protein Negative (Negative); Urine Red Blood Cell 2+(6-10/hpf) (Absent); Urine Specific Gravity 1.005 (1.010-1.030); Urine Squamous Epithelial Cell Present (Absent); Urine Urobilinogen Negative (Negative); Urine White Blood Cell 3+(>20/hpf) (Absent)
[2018-09-09] MEDS: Amphetamine MIXED SALT TAB* 10 MG TAB PO SCH ×3 (00:34→12:47)
[2018-09-09] MEDS: oxyCODONE TAB* 5 MG TAB PO PRN ×3 (01:43→14:39)
[2018-09-09] MEDS: Acetaminophen TAB* 325 MG PO PRN ×3 (01:44→14:39)
[2018-09-09] MEDS: Nitrofurantoin Macrocrystals* 50 MG CAP PO SCH ×4 (02:49→20:36)
[2018-09-09] MEDS ORDERED: KCL 20 MEQ/100 ML IVPREMIX* 20 MEQ/100 ML BAG ONE (03:57)
[2018-09-09] MEDS: KCL 20 MEQ/100 ML IVPREMIX* 20 MEQ/100 ML BAG IV SCH (03:58)
[2018-09-09 05:43] LABS: Hematocrit 23 % (35-47); Hemoglobin 7.4 g/dL (12.0-16.0); Mean Corpuscular HGB Conc 32 g/dL (31-36); Mean Corpuscular Hemoglobin 26 pg (27-31); Mean Corpuscular Volume 81 fL (80-97); Mean Platelet Volume 8.7 fL (7.4-10.4); Platelet Count 306 10^3/uL (150-450); Red Blood Count 2.88 10^6 /uL (3.70-4.87); Red Cell Distribution Width 18 % (10-15)
[2018-09-09 06:03] LABS: Calcium 8.1 mg/dL (8.6-10.3); EGFR African American 120.1 (>60); EGFR Non-African American 99.3 (>60); Potassium 3.6 mmol/L (3.5-5.0)
[2018-09-09] MEDS: fentaNYL Patch Check Q Shift 1 NOTE FOLLOW UP SCH ×2 (06:58→19:25)
[2018-09-09] MEDS ORDERED: Potassium Chlor TAB* 20 MEQ TAB.ER PO ONE (08:18)
[2018-09-09] MEDS: Cholecalciferol TAB* 1000 UNITS PO SCH (08:24)
[2018-09-09] MEDS: Pantoprazole TAB * 40 MG TAB PO SCH ×2 (08:24→20:35)
--- NOTE | 2018-09-09 08:30 | PN ---
Subjective Date of Service: 09/09/18 Interval History: No acute events overnight. Started on nitrofurantoin for UTI, pending cultures. Hgb stable and not requiring blood transfusion. Pending GI consult for today. Will give 1 dose of IV iron for symptomatic Fe-def anemia. Will start on amitriptylline tonight for fibromyalgia treatment. Pt said she's never been told to exercise, either. Denies abd pain, melena. BM today was solid and "brown-green". Still feels tired and SOB but able to walk around. Objective Active Medications: Acetaminophen (Tylenol Tab*) 650 mg PO Q4H PRN PRN Reason: FEVER/PAIN Last Admin: 09/09/18 06:05 Dose: 650 mg Amitriptyline HCl (Elavil Tab*) 10 mg PO BEDTIME [facility] Amphetamine/Dextroamphetamine (Adderall Tab*) 10 mg PO 0900,1300 [facility] Last Admin: 09/09/18 00:34 Dose: 10 mg Cholecalciferol (Vitamin D Tab*) 1,000 units PO DAILY [facility] Fentanyl (Duragesic Patch 25 Mcg/Hr*) 25 mcg TRANSDERM Q72H [facility] Last Admin: 09/08/18 23:13 Dose: 25 mcg Ferric Sodium Gluconate Complex 125 mg/ Sodium Chloride 110 mls @ 110 mls/hr IVPB ONCE [facility] Nitrofurantoin Macrocrystals (Macrodantin*) 50 mg PO Q6H [facility] Last Admin: 09/09/18 02:49 Dose: 50 mg Oxycodone HCl (Roxycodone Tab*) 5 mg PO Q4H PRN PRN Reason: pain moderate Last Admin: 09/09/18 06:04 Dose: 5 mg Pantoprazole Sodium (Protonix Tab*) 40 mg PO BID [facility] Last Admin: 09/08/18 22:58 Dose: 40 mg Pharmacy Profile Note (Fentanyl Patch Check Q Shift) 1 note FOLLOW UP 0700, 1900 [facility] Last Admin: 09/09/18 06:58 Dose: 1 note Potassium Chloride (Klor Con Er Tab*) 40 meq PO ONCE ONE Stop: 09/09/18 08:19 Vital Signs - 8 hr 09/09/18 09/09/18 09/09/18 01:43 02:53 04:03 Pulse Rate 90 Respiratory 18 19 18 Rate Blood Pressure 102/56 (mmHg) O2 Sat by Pulse 98 Oximetry 07/27/19 06:04 Pulse Rate Respiratory 16 Rate Blood Pressure (mmHg) O2 Sat by Pulse Oximetry Oxygen Devices in Use Now: None Appearance: pale woman in NAD, alert and interactive, hard of hearing Eyes: No Scleral Icterus, - - conjunctival pallor Ears/Nose/Mouth/Throat: Clear Oropharnyx, Mucous Membranes Moist Neck: NL Appearance and Movements; NL JVP Respiratory: Symmetrical Chest Expansion and Respiratory Effort, Clear to Auscultation Cardiovascular: NL Sounds; No Murmurs; No JVD, RRR Abdominal: - - soft, mild tenderness to deep palpation of RLQ, no guarding or rebound, normoactive bowel sounds Extremities: No Edema Skin: No Rash or Ulcers Neurological: Alert and Oriented x 3, - - pain to touch over entire body Result Diagrams: 09/09/18 04:50 09/09/18 04:50 Assess/Plan/Problems-Billing Assessment: 82W with hiatal hernia c/b Yevgeniy's erosions and chronic GI bleeding, fibromyalgia, RA, and IBS, who presents from [place] ER with black stool and increasing SOB and fatigue over months. Found with severe but stable anemia, and UTI. - Patient Problems (1) Yevgeniy lesion, chronic Comment: from known hiatal hernia, and patient had self-DC'ed her home PO iron. - GI to consult today - monitor Hgb, so far has not required transfusion - s/p IV iron while admitted, to go home on PO iron, stressed importance of adherence to this and PPI (pantoprazole 40mg bid) - NO NSAIDs (2) UTI (urinary tract infection) Comment: With dysuria and with positive UA. - nitrofurantoin (09/08 - ) - f/u UCx (3) Iron deficiency anemia Comment: from chronic gastric bleeding - give IV iron while admitted, can resume PO on discharge - discussed taking on an empty stomach, NOT WITH PPI; absorption may be helped with Vit C (4) Fibromyalgia Comment: had been on opioid patch but not yet first line therapies - start amitriptyline tonight, 10mg - cont Fentanyl patch 25mcg/hr - has been on this for years - discussed role of exercise and psychotherapy (5) ADHD Comment: Per pt. Will continue home amphetamine (iSTOP confirmed). (6) Full code status Current Visit: Yes Status: Acute Code(s): Z78.9 - OTHER SPECIFIED HEALTH STATUS SNOMED Code(s): 590101028
[2018-09-09] MEDS ORDERED: Ferric Gluconate IV* 125 MG in NS 0.9% 100 ML* 100 ML IVPB ONE (09:00)
--- NOTE | 2018-09-09 12:12 | CONS ---
CONSULTATION REPORT: DATE OF CONSULTATION: 09/09/18 REQUESTING PHYSICIAN: Dr. Jones. INDICATION: Melena, anemia. NARRATIVE: Mrs. Henderson is a pleasant 82-year-old female, who is a patient of Dr. Chuy Pop. She has a long history of anemia secondary to Yevgeniy's erosions and a very large hiatal hernia. About a year and half ago was the last time she was seen by Dr. Pop. At that time she was admitted for similar circumstances. She underwent an upper endoscopy, which revealed a very large hiatal hernia, clinically significant GERD, and Yevgeniy's erosions. She was recommended to remain on a PPI, not used nonsteroidals, and used iron. Unfortunately, she decided to stop her iron on her own. She did see her primary care physician, Dr. Hoffman, 2 days ago with complaints of worsening shortness of breath and dyspnea on exertion. She denies any black and tarry stools. She denies any abdominal pain. She did have a hemoglobin checked and was found to be lower than normal and she was referred to [facility], to their emergency room. Unfortunately, [place] no longer has GI services and she was transferred to [facility] for further workup. She denies taking any recent nonsteroidals. She does admit to stopping her iron because she does not like the way it makes her feel. No nausea, no vomiting, no unintentional weight loss, and again, no black or tarry stools. When she presented to the emergency room her hemoglobin was 7.7; this morning it is 7.4. She still feels weak, tired, and dizzy. PAST MEDICAL HISTORY: Significant for iron-deficiency anemia, irritable bowel, rheumatoid arthritis, fibromyalgia, hypertension, and hiatal hernia. PAST SURGICAL HISTORY: Includes cholecystectomy. MEDICATIONS: On admission include fentanyl patch, omeprazole 20 mg twice a day. ALLERGIES: CODEINE. FAMILY HISTORY: Pancreatic cancer, colon cancer, and uterine cancer. SOCIAL HISTORY: She denies any tobacco. Rarely drinks alcohol. REVIEW OF SYSTEMS: Other than feeling fatigued and other than that mentioned in the HPI, 12 systems were reviewed and were unremarkable. PHYSICAL EXAM: Temperature is 98.1, blood pressure is 131/64, pulse is 86, respiratory rate of 17, O2 sat is 96%. General: Chronically ill elderly female , in no apparent distress. Alert, oriented, pleasant, and fluent. HEENT: Conjunctivae are pale. Mucous membranes are moist, without lesions, ulcers or exudate. Neck is supple. Trachea is midline. Head is normocephalic, atraumatic. Heart: Regular rate and rhythm. Lungs: Clear to auscultation bilaterally. Abdomen: Obese. Positive bowel sounds. Soft, nontender, nondistended. Skin is warm and dry. LABORATORY DATA: Of note, her hemoglobin is 7.4, down from 7.7; back in 2017 she was 8.5. INR is 1.01. BUN is not elevated, it has gone down from 12 to 11. Creatinine is normal. ASSESSMENT AND PLAN: This is an 82-year-old female with a long history's of iron- deficiency anemia, most likely secondary to Yevgeniy's erosions. No new features with this hospitalization. She is symptomatic from her anemia. I do not believe she needs a repeat upper endoscopy at this point, she has had multiple upper endoscopies in the past. She has been told that she needs to remain on her iron she stopped herself many weeks ago. This may be contributing to her decrease in hemoglobin. She will get IV iron here. She may need a blood transfusion. She should remain on her PPI. We should probably increase that too to 40 mg twice a day and she should remain on that. She will also need to remain on her oral iron. This was all discussed with the patient and her daughter. Daughter is in total agreement with all of this. We will continue to follow along. [id number]/[facility] #: [id number] MTDD
[2018-09-09] MEDS ORDERED: Amitriptyline TAB* 10 MG PO SCH (21:00)
[2018-09-10] MEDS: oxyCODONE TAB* 5 MG TAB PO PRN (01:18)
[2018-09-10] MEDS: Nitrofurantoin Macrocrystals* 50 MG CAP PO SCH ×2 (03:46→10:51)
[2018-09-10 06:05] LABS: Hematocrit 24 % (35-47); Hemoglobin 7.4 g/dL (12.0-16.0); Mean Corpuscular HGB Conc 31 g/dL (31-36); Mean Corpuscular Hemoglobin 25 pg (27-31); Mean Corpuscular Volume 81 fL (80-97); Platelet Count 325 10^3/uL (150-450); Red Blood Count 2.95 10^6 /uL (3.70-4.87); Red Cell Distribution Width 17 % (10-15)
[2018-09-10] MEDS: fentaNYL Patch Check Q Shift 1 NOTE FOLLOW UP SCH (06:59)
--- NOTE | 2018-09-10 10:07 | PN ---
Progress Note - Progress Note Date of Service: 09/10/18 Note: doing well, no blood in stools, no pain; vickey diet wants to go home now VS; 98.2, 129/63, 88, 18 nad, obese, +BS, soft, nt hgb stable at 7.4 anemia, multifactorial; large HH, h/o Yevgeniy's ulcers; pt stopped her iron ok to dc with close fu with her outpt GI....Dr Pop bid iron, bid 40mg omeprazole Jose Wills MD [facility]
[2018-09-10 10:26] VITALS: BP 151/67
[2018-09-10] MEDS: Cholecalciferol TAB* 1000 UNITS PO SCH (10:50)
[2018-09-10] MEDS: Acetaminophen TAB* 325 MG PO PRN (10:50)
[2018-09-10] MEDS: Pantoprazole TAB * 40 MG TAB PO SCH (10:52)
[2018-09-10] MEDS: Amphetamine MIXED SALT TAB* 10 MG TAB PO SCH (10:55)
--- NOTE | 2018-09-10 18:02 | DS ---
Resident Discharge Summary Discharge Summary: Date of Admission: 09/08/18 Date of Discharge: 09/10/18 Admitting MD: Brandon Madera MD Attending MD: Jennifer Jones MD Primary Care Physician: Arturo Cheng MD Amphetamine MIXED SALT TAB* [Adderall TAB*] 10 mg PO BID MDD 20 mg 10/04/16 [ History Confirmed 09/08/18] Omeprazole CAP (NF) [Prilosec CAP* 20 MG] 20 mg PO BID #60 10/06/16 [Rx Confirmed 09/08/18] Cholecalciferol CAP/TAB(NF) [Vitamin D3 CAP/TAB (NF)] 1 tab PO DAILY 09/08/18 [ History Confirmed 09/08/18] fentaNYL PATCH 25 MCG/HR* [Duragesic PATCH 25 Mcg/Hr*] 25 mcg TRANSDERM Q72H [History Confirmed 09/08/18] Amitriptyline TAB* [Elavil TAB*] 10 mg PO BEDTIME #30 tab 09/10/18 [Rx] Ferrous Sulfate TAB* 325 mg PO DAILY #30 tab 09/10/18 [Rx] Nitrofurantoin Macrocrystals* [Macrodantin 50 MG*] 50 mg PO Q6H #20 cap [Rx] Disposition: Home Condition: Improved Primary Diagnosis: 1. Hiatal hernia with Yevgeniy's lesion causing gastric bleeding 2. Iron deficiency anemia due to bleeding 3. Urinary tract infection 4. Fibromyalgia Secondary Diagnosis: 1. ADHD Pertinent Laboratory Results: HgB: 7.7 on admission; 7.4 on discharge RBC: 2.98 ON ADMISSION; 2.95 on discharge MCV: 81 RDW: 17 POTASSIUM: 2.6 on admission; 3.6 on discharge Magnesium: 1.5 on discharge; 2 on discharge Urine leukocyte esterase: 3+ Urine RBC: 2+ Hyaline cast: present Urine bacteria: 1+ Hospital Course: 82 y/o F with past medical history of hiatal hernia with yevgeniy lesions with multiple hositalization, Iron deficiency anemia(multiple transfusion), Irritable bowel syndrome and fibromyalgia presented with black tarry stools, weakness and shortness of breath for 1 month with increased severity for 2 weeks. She also has feeling of passing out but didnot had one. On baseline she was able to do perform all activities but after these symptoms her activity has markedly decreased. She also gives history of burning micturition but no blood in urine or any abdominal pain. She feels nauseous but no vomiting. She has intermittent diarrhea and constipation given her history of IBS. There is no history of fever, chest pain, extremity swelling, weight changes. She had similar episodes in the past which required hospitalization and blood transfusion and was diagnosed as Hiatal Hernia with Yevgeniy erosion with chronic anemia. Due to these symptom she landed in ED in [place] [facility]; because they had no GI coverage she was accepted here and transferred. After admission, we got blood and urine report from [facility]. Hemoglobin showed 7.7 and urine showed infection. Chest xray was normal. Urine culture were sent. GI consulted. IV iron given. Amitrypline started. Nitrofurantoin given for 5 days. Patient improved and we discharged on oral iron and nitrofurantoin. Follow Up Instructions: Follow up with PCP in 4-7 days. Patient is started on amitryptilline. Follow up with GI in 1-2 weeks. Exercise encouraged as a treatment of fibromyalgia. In case of an emergency or after clinic hours, please go to your nearest Emergency Department. You may also call the [facility] operator electronic warfare at .
== END 2018-09-10 11:10 | disposition home or self-care (01) | DRG 378 ==
LOC: MED 17:05
PROVIDERS: ADMIT Internal Medicine; ATTEND Internal Medicine
DX: K25.4 Chronic or unspecified gastric ulcer with hemorrhage (principal); N39.0 Urinary tract infection, site not specified; K44.9 Diaphragmatic hernia without obstruction or gangrene; D50.0 Iron deficiency anemia secondary to blood loss (chronic); B96.20 Unspecified Escherichia coli [E. coli] as the cause of diseases classified elsewhere; B96.4 Proteus (mirabilis) (morganii) as the cause of diseases classified elsewhere; M79.7 Fibromyalgia; F90.9 Attention-deficit hyperactivity disorder, unspecified type; K58.2 Mixed irritable bowel syndrome; M06.9 Rheumatoid arthritis, unspecified; G93.0 Cerebral cysts; Z80.0 Family history of malignant neoplasm of digestive organs; Z80.49 Family history of malignant neoplasm of other genital organs; Z87.891 Personal history of nicotine dependence; Z79.1 Long term (current) use of non-steroidal anti-inflammatories (NSAID); Z79.899 Other long term (current) drug therapy
CPT/HCPCS: 36415; 80048; 81003; 81015; 83735; 85025; 85027; 85610; 85730; 87077; 87086; 87184; 87186; 93005; A9270-GY; G8978-GP-CI; G8979-GP-CI; J2916; J3475; J3480